=== PATIENT | female | born 1980 | race Caucasian/White ===

== ENCOUNTER 2020-11-25 22:14 | Observation (INO) ==
[2020-11-25] MEDS ORDERED: NALOXONE 0.4 MG/ML VIAL IV STA (22:25)
[2020-11-25] MEDS ORDERED: SODIUM CHLORIDE 0.9% 1,000 ML IV STA (22:34)
[2020-11-25 22:38] LABS: ABG Base Excess -4.8 MMOL/L (-2.5-2.5); ABG HCO3 20.5 MMOL/L (20-26); ABG Oxygen Saturation 99.9 % (95-100); ABG PCO2 30.2 MM HG (35-48); ABG PH 7.403 (7.35-7.45); ABG TCO2 16.5 MMOL/L (23-27)
[2020-11-25 23:06] LABS: Acetaminophen < 2.0 UG/ML (10-30); Alanine Aminotransferase 61 U/L (13-56); Albumin 3.6 G/DL (3.4-5.0); Alkaline Phosphatase 90 U/L (45-117); Aspartate Amino Transferase 96 U/L (0-37); Bilirubin,Total < 0.39 MG/DL (0.2-1.0); Blood Urea Nitrogen 20 MG/DL (7-18); Calcium 8.4 MG/DL (8.5-10.1); Carbon Dioxide 22 MMOL/L (21-32); Estimated Glom Filtration Rate 56 ML/MIN; Glucose 290 MG/DL (74-106); Potassium 3.4 MMOL/L (3.5-5.1); Salicylate < 2.8 MG/DL (2.8-20); Sodium 136 MMOL/L (136-145); Total Protein 7.7 G/DL (6.4-8.3)
[2020-11-25 23:12] LABS: Basophils % 0.2 % (0.0-0.8); Eosinophils # 0.1 10*3/uL (0.0-0.87); Eosinophils % 0.6 % (0.00-10.9); Hematocrit 39.1 VOL% (35.7-47.0); Hemoglobin 12.7 GM/DL (12.0-16.0); Immature Granulocytes % 0.3 %; Immature Granulocytes Absolute 0.04 #; Lymphocytes # 5.1 10*3/uL (1.4-4.0); Lymphocytes % 43.4 % (21.3-54.2); Mean Corpuscular HGB Conc 32.5 GM/DL (32-36); Mean Corpuscular Volume 97.5 FL (87-102); Monocytes % 4.6 % (1.7-12.7); Neutrophils % 50.9 % (38.7-73.9); Platelet Count 346 T/CUMM (130-400); Red Blood Count 4.01 MC/CUMM (3.8-5.5); White Blood Count 11.6 T/CUMM (4-12)
[2020-11-25 23:18] LABS: Bacteria,Urine Many /HPF (Few); Bilirubin,Urine Negative (Negative); Blood, Urine Moderate mg/dL (Negative); Glucose,Urine (UA) 50 mg/dL (Negative); Ketones,Urine Negative (Negative); Mucus,Urine Many /LPF (Occasional); Nitrite,Urine Positive (Negative); Protein,Urine 100 MG/DL; RBC,Urine 5 /HPF (0-4); Squamous Epithelial Cell,Urine Occasional /HPF (0-10); Urine Appearance Slightly Hazy (Clear); Urine Color Yellow (Yellow); Urine Specific Gravity 1.027 (1.001-1.035); Urine Urobilinogen < 2.0 EU/DL (0.2-1.0); WBC,Urine 3 /HPF (0-6)
[2020-11-25 23:25] LABS: Barbiturates Screen,Urine Negative (Negative); Benzodiazepines Screen,Urine Positive (Negative); Cannabinoid Screen,Urine Positive (Negative); Opiate Screen,Urine Positive (Negative); Phencyclidine Screen,Urine Negative (Negative)
[2020-11-26] MEDS ORDERED: cefTRIAXone 1,000 MG in SODIUM CHLORIDE 0.9% 100 ML IV STA (01:26)
[2020-11-26] MEDS ORDERED: ACETAMINOPHEN 325 MG TABLET PO PRN (01:51)
[2020-11-26] MEDS ORDERED: DEXTROSE 50% 25 GM/50 ML VIAL IV PRN (01:51)
[2020-11-26] MEDS ORDERED: ONDANSETRON 4 MG/2 ML VIAL IV PRN (01:51)
[2020-11-26] MEDS ORDERED: GLUCAGON 1 MG VIAL IM PRN (01:51)
[2020-11-26] MEDS: SODIUM CHLORIDE 0.9% 1,000 ML IV SCH ×2 (03:38→10:00)
[2020-11-26 06:01] VITALS: BP 109/83
[2020-11-26] MEDS ORDERED: INSULIN REGULAR 100 UNIT/ML SUBCUT SCH (07:30)
[2020-11-26] MEDS ORDERED: ENOXAPARIN 40 MG/0.4 ML SYRINGE SUBCUT SCH (08:00)
[2020-11-26] MEDS ORDERED: PANTOPRAZOLE 40 MG TABLET PO SCH (09:00)
[2020-11-27] MEDS ORDERED: cefTRIAXone 1,000 MG in SODIUM CHLORIDE 0.9% 100 ML IV SCH (02:00)
== END 2020-11-26 11:10 | disposition home or self-care (01) ==
LOC: N.EDINP 22:14 → N.ED 22:14 → N.CC 11-26 03:03
PROVIDERS: ADMIT Internal Medicine; ATTEND Internal Medicine

== ENCOUNTER 2021-06-18 10:17 | Observation (INO) ==
[2021-06-18 11:30] LABS: Blood, Urine Moderate mg/dL (Negative); Glucose,Urine (UA) Negative (Negative); Ketones,Urine Negative (Negative); Mucus,Urine Many /LPF (Occasional); Nitrite,Urine Negative (Negative); Protein,Urine 30 MG/DL; RBC,Urine 10 /HPF (0-4); Squamous Epithelial Cell,Urine Many /HPF (0-10); Urine Appearance CLOUDY (Clear); Urine Color Amber (Yellow); Urine Specific Gravity 1.025 (1.001-1.035)
[2021-06-18 11:31] LABS: Bilirubin,Urine Moderate mg/dL (Negative)
[2021-06-18 11:49] LABS: Barbiturates Screen,Urine Negative (Negative); Benzodiazepines Screen,Urine Negative (Negative); Cannabinoid Screen,Urine Negative (Negative); Opiate Screen,Urine Negative (Negative); Phencyclidine Screen,Urine Negative (Negative)
[2021-06-18 12:41] LABS: Basophils % 0.4 % (0.0-0.8); Eosinophils % 0.3 % (0.00-10.9); Hematocrit 43.5 VOL% (35.7-47.0); Hemoglobin 14.4 GM/DL (12.0-16.0); Immature Granulocytes % 0.3 %; Immature Granulocytes Absolute 0.02 #; Lymphocytes # 2.6 10*3/uL (1.4-4.0); Lymphocytes % 33.9 % (21.3-54.2); Mean Corpuscular HGB Conc 33.1 GM/DL (32-36); Mean Corpuscular Volume 94.6 FL (87-102); Mean Platelet Volume 9.8 FL (9.6-12.0); Monocytes % 8.6 % (1.7-12.7); Neutrophils % 56.5 % (38.7-73.9); Platelet Count 254 T/CUMM (130-400); Red Cell Distribution Width 15.8 % (9.3-17.3); White Blood Count 7.5 T/CUMM (4-12)
[2021-06-18 13:09] LABS: Band Neutrophils 1 % (0-10); Lymphocytes 32 % (20-55); Segmented Neutrophils 57 % (50-85); Total Cells Counted 100
[2021-06-18 13:10] LABS: Platelet Estimate Adequate
[2021-06-18 13:12] LABS: Albumin 2.8 G/DL (3.4-5.0); Bilirubin,Total 5.5 MG/DL (0.20-1.00); Osmolality,Calculated 273.5 MOS/KG (273-304); Potassium 4.2 MMOL/L (3.5-5.1); Total Protein 7.5 G/DL (6.4-8.2)
[2021-06-18] MEDS ORDERED: KETOROLAC 30 MG/1 ML VIAL IV STA (13:17)
[2021-06-18] MEDS ORDERED: KETOROLAC 30 MG/1 ML VIAL ONE (13:17)
[2021-06-18] MEDS ORDERED: SODIUM CHLORIDE 0.9% 1,000 ML IV STA ×2 (14:19→15:20)
[2021-06-18 15:20] LABS: Hepatitis B Core IgM Quant < 0.05 Index; Hepatitis B Surface Ag Quant < 0.10 Index; Hepatitis B Surface Ag Result Non-Reactive (NonReactive); Hepatitis C Virus Ab Result Non-Reactive (NonReactive)
[2021-06-18] MEDS ORDERED: ONDANSETRON 4 MG/2 ML VIAL IV PRN (16:14)
[2021-06-18] MEDS ORDERED: GLUCAGON 1 MG VIAL IM PRN (16:14)
[2021-06-18] MEDS ORDERED: DEXTROSE 50% 25 GM/50 ML VIAL IV PRN (16:14)
[2021-06-18] MEDS ORDERED: LACTULOSE 20 GM/30 ML UDCUP PO PRN (17:42)
[2021-06-18] MEDS: SODIUM CHLORIDE 0.9% 1,000 ML IV SCH (19:16)
[2021-06-18] MEDS: DOCUSATE SODIUM 100 MG CAPSULE PO SCH (20:33)
[2021-06-18] MEDS: traMADol 50 MG TABLET PO PRN (22:24)
[2021-06-18] MEDS ORDERED: ZALEPLON 5 MG CAPSULE PO PRN (23:17)
[2021-06-19] MEDS: SODIUM CHLORIDE 0.9% 1,000 ML IV SCH ×2 (03:54→14:52)
[2021-06-19] MEDS: traMADol 50 MG TABLET PO PRN (07:56)
[2021-06-19] MEDS: PANTOPRAZOLE 40 MG TABLET PO SCH (09:40)
[2021-06-19] MEDS: DOCUSATE SODIUM 100 MG CAPSULE PO SCH ×2 (09:40→21:01)
[2021-06-19] MEDS: HYDROmorphone 2 MG/1 ML VIAL IV PRN ×3 (10:25→22:21)
[2021-06-19 11:12] LABS: Basophils % 0.5 % (0.0-0.8); Eosinophils % 0.3 % (0.00-10.9); Hematocrit 36.4 VOL% (35.7-47.0); Hemoglobin 12.5 GM/DL (12.0-16.0); Immature Granulocytes % 0.3 %; Immature Granulocytes Absolute 0.02 #; Lymphocytes # 2.5 10*3/uL (1.4-4.0); Lymphocytes % 41.2 % (21.3-54.2); Mean Corpuscular HGB Conc 34.3 GM/DL (32-36); Mean Corpuscular Volume 92.6 FL (87-102); Mean Platelet Volume 9.9 FL (9.6-12.0); Neutrophils % 47.7 % (38.7-73.9); Platelet Count 236 T/CUMM (130-400); Red Blood Count 3.93 MC/CUMM (3.8-5.5); Red Cell Distribution Width 15.7 % (9.3-17.3); White Blood Count 6.2 T/CUMM (4-12)
[2021-06-19 11:27] LABS: INR 1.2; PT Patient Result 13.2 SECS (10.5-12.0)
[2021-06-19 11:37] LABS: Atypical Lymphocytes Few; Band Neutrophils 2 % (0-10); Hypochromasia 1+; Lymphocytes 38 % (20-55); Microcytosis 1+; Platelet Estimate Normal; Segmented Neutrophils 50 % (50-85); Total Cells Counted 100
[2021-06-19 11:38] LABS: Ovalocytes Slight
[2021-06-19 11:44] LABS: Albumin 2.4 G/DL (3.4-5.0); Bilirubin,Total 4.8 MG/DL (0.20-1.00); Calcium 7.5 MG/DL (8.5-10.1); Osmolality,Calculated 271.7 MOS/KG (273-304); Potassium 3.7 MMOL/L (3.5-5.1); Total Protein 6.2 G/DL (6.4-8.2)
[2021-06-19] MEDS: THIAMINE INJ 100 MG, FOLIC ACID INJ 1 MG, MULTIVITAMIN INJ 10 ML in SODIUM CHLORIDE 0.9... IV SCH (18:01)
[2021-06-19] MEDS: NICOTINE 21 MG/24 HR PATCH TRANSDERM PRN (22:21)
[2021-06-20] MEDS: SODIUM CHLORIDE 0.9% 1,000 ML IV SCH ×3 (01:52→20:13)
[2021-06-20] MEDS: HYDROmorphone 2 MG/1 ML VIAL IV PRN ×4 (02:04→19:13)
[2021-06-20] MEDS: THIAMINE INJ 100 MG, FOLIC ACID INJ 1 MG, MULTIVITAMIN INJ 10 ML in SODIUM CHLORIDE 0.9... IV SCH (02:50)
[2021-06-20] MEDS ORDERED: diphenhydrAMINE CAP 25 MG CAPSULE PO PRN (04:32)
[2021-06-20] MEDS ORDERED: diphenhydrAMINE CAP 25 MG CAPSULE ONE (04:33)
[2021-06-20 04:56] LABS: Basophils % 0.4 % (0.0-0.8); Eosinophils # 0.1 10*3/uL (0.0-0.87); Hematocrit 33.6 VOL% (35.7-47.0); Hemoglobin 11.2 GM/DL (12.0-16.0); Immature Granulocytes % 0.2 %; Immature Granulocytes Absolute 0.01 #; Lymphocytes # 2.5 10*3/uL (1.4-4.0); Lymphocytes % 50.1 % (21.3-54.2); Mean Corpuscular HGB Conc 33.3 GM/DL (32-36); Mean Corpuscular Volume 94.4 FL (87-102); Mean Platelet Volume 10.1 FL (9.6-12.0); Monocytes % 9.7 % (1.7-12.7); Neutrophils % 38.6 % (38.7-73.9); Platelet Count 223 T/CUMM (130-400); Red Blood Count 3.56 MC/CUMM (3.8-5.5); Red Cell Distribution Width 15.9 % (9.3-17.3)
[2021-06-20 05:24] LABS: Eosinophils 3 % (0-10); Lymphocytes 44 % (20-55); Platelet Estimate Adequate; Segmented Neutrophils 46 % (50-85); Total Cells Counted 100
[2021-06-20 05:25] LABS: Atypical Lymphocytes Few; Hypochromasia 1+; Microcytosis 1+
[2021-06-20 05:31] LABS: Albumin 2.1 G/DL (3.4-5.0); Bilirubin,Total 4.3 MG/DL (0.20-1.00); Calcium 7.4 MG/DL (8.5-10.1); Osmolality,Calculated 274.5 MOS/KG (273-304); Potassium 3.6 MMOL/L (3.5-5.1); Total Protein 5.6 G/DL (6.4-8.2)
[2021-06-20] MEDS: chlordiazePOXIDE 10 MG CAPSULE PO PRN ×3 (05:46→22:56)
[2021-06-20] MEDS: PANTOPRAZOLE 40 MG TABLET PO SCH (09:59)
[2021-06-20] MEDS: DOCUSATE SODIUM 100 MG CAPSULE PO SCH ×2 (09:59→22:57)
[2021-06-20] MEDS ORDERED: CALCIUM CARBONATE CHEW 500 MG TABLET PO ONE ×2 (14:32→23:04)
[2021-06-20] MEDS: NICOTINE 21 MG/24 HR PATCH TRANSDERM PRN (14:52)
[2021-06-20] MEDS ORDERED: THIAMINE INJ 100 MG, FOLIC ACID INJ 1 MG, MULTIVITAMIN INJ 10 ML in SODIUM CHLORIDE 0.9... IV SCH (18:00)
[2021-06-20] MEDS ORDERED: KETOROLAC 15 MG/1 ML VIAL IV PRN (20:42)
[2021-06-21] MEDS: SODIUM CHLORIDE 0.9% 1,000 ML IV SCH ×3 (04:34→12:48)
[2021-06-21] MEDS ORDERED: traMADol 50 MG TABLET PO ONE (08:26)
[2021-06-21] MEDS ORDERED: HYDROmorphone 2 MG/1 ML VIAL IV ONE (08:31)
[2021-06-21] MEDS: PANTOPRAZOLE 40 MG TABLET PO SCH (08:41)
[2021-06-21] MEDS: DOCUSATE SODIUM 100 MG CAPSULE PO SCH (09:57)
[2021-06-21 17:24] VITALS: BP 102/52
== END 2021-06-21 18:02 | disposition home or self-care (01) ==
LOC: N.EDINP 10:17 → N.ED 10:17 → N.4E 17:30
PROVIDERS: ADMIT Internal Medicine; ATTEND Internal Medicine